=== PATIENT | male | born 1955 | race Hispanic/Latino ===

== ENCOUNTER → 2025-07-05 | Day surgery (SDC) | payer BC ==
[2025-06-30 15:41] LABS: BASOPHILS % 0.4 % (0.0-1.0); EOSINOPHILS % 0.7 % (0.0-6.0); LYMPHOCYTES % 38.1 % (18.0-39.1); MONOCYTES % 5.3 % (4.4-11.3); NEUTROPHILS % 55.3 % (38.7-80.0); RED CELL DISTRIBUTION WIDTH 13.2 % (11.7-14.4)
[~2025-07-05] MED LIST: AMANTADINE100 M1 PO; ENTACAPONE200 MG PO; GLUCAGON FOR INJ 1 MG VIAL ONE; HYOSCYAMINE SULFATE 0.5 MG/ML INJ ONE; LIDOCAINE HCL 2% LOCAL INJ 5 ML SDV VIAL INJ ONE; PROPOFOL IV EMULSION 10 MG/ML 20 ML VIAL ONE; PROPOFOL IV EMULSION 50 ML IV ONE; SINEMET 25-1001 EACH PO; [UNRECOGNIZED DRUG - OTHER] PO
[2025-07-05] MEDS: LACTATED RINGER'S 1,000 ML ONE (07:54)
[2025-07-05 09:23] VITALS: TEMP 97.6
[2025-07-05 09:45] VITALS: BP 136/88; PULSE 71; RESP 18; O2SAT 100
== END | disposition home or self-care (01) ==
LOC: OR 06:39
PROVIDERS: ATTEND Internal Medicine Gastroenterology
DX: Z12.11 Encounter for screening for malignant neoplasm of colon (principal); K59.09 Other constipation; K92.1 Melena; K64.8 Other hemorrhoids; E78.00 Pure hypercholesterolemia, unspecified; G20.A1 Parkinson's disease without dyskinesia, without mention of fluctuations; Z01.810 Encounter for preprocedural cardiovascular examination; Z01.812 Encounter for preprocedural laboratory examination; Z79.1 Long term (current) use of non-steroidal anti-inflammatories (NSAID); Z79.899 Other long term (current) drug therapy; Z71.3 Dietary counseling and surveillance; Z91.81 History of falling
CPT/HCPCS: 36415; 45378; 85025; 93005; J1610; J1980; J2003; J2704 ×2; J7121